=== PATIENT | male | born 1965 | race Caucasian/White ===

== ENCOUNTER 2016-12-14 05:54 | Day surgery (SDC) | payer OTHER ==
[2016-12-13 12:56] VITALS: BMI 27.2
[2016-12-14] VITALS (8 sets, daily range): BP systolic 116–146; BP diastolic 72–89; PULSE 18–100; RESP 13–18; Ht 182.9 cm; Wt 95.6 kg
[~2016-12-14] VITALS: Ht 182.9 cm; Wt 95.6 kg
[~2016-12-14 05:54] MED LIST: FIORICET PO; GLIP5TAB13 PO; METF500T4 PO
[2016-12-14] MEDS ORDERED: SOD CHLORIDE 0.9% 1,000 ML IV SCH (06:00)
[2016-12-14] MEDS ORDERED: CEFAZOLIN 2 GM/50 ML (PMX) 50 ML IVPB ONE (06:00)
[2016-12-14] MEDS ORDERED: BUPIVACAINE 0.25% (MPF) 30 ML INJ ONE (07:16)
[2016-12-14] MEDS ORDERED: GLIP-95 PO (07:17)
[2016-12-14] MEDS ORDERED: ASPI81TA3 PO (07:17)
[2016-12-14] MEDS ORDERED: LIDOCAINE 2% (SDV) 5 ML INJ ONE (07:45)
[2016-12-14] MEDS ORDERED: MIDAZOLAM 1 MG/ML 2 ML INJ ONE (07:46)
[2016-12-14] MEDS ORDERED: PROPOFOL 20 ML ONE (07:46)
[2016-12-14] MEDS ORDERED: FAMOTIDINE 20 MG INJ ONE (08:12)
[2016-12-14] MEDS ORDERED: ONDANSETRON 4 MG INJ ONE (08:12)
[2016-12-14] MEDS ORDERED: KETOROLAC 30 MG INJ ONE (08:29)
--- NOTE | 2016-12-14 08:40 | OPR ---
Date/Time of Note Date/Time of Note DATE: 12/14/16 TIME: 08:35 Operative Report Procedure Date: Dec 14, 2016 Preoperative Diagnosis right shoulder mass Postoperative Diagnosis same Operation Performed 1. excision of right shoulder mass 7 cm mass 10 cm incision 2. localized adjacent tissue transfer with the use of skin flaps of 30 sq cm defect 3. therapeutic injection of subcutaneous marcaine cpt code 20753 Surgeon: Rick CAMPO Anesthesia Type: general Estimated Blood Loss: minimal Specimens right shoulder mass Grafts/Implants: none Complications: no Indications This is a 51-year-old male with a large posterior right shoulder mass. He requires surgical excision. Risks alternatives benefits and percent were discussed the patient. Potential complications include but not limited to bleeding infection pain superficial nerve injury were discussed the patient. Patient expresses understanding and consents to the operation. Procedure Description Patient is taken to the OR and prepped and draped in usual sterile fashion. Surgical timeout was performed. IV antibiotics given. Transverse incision is made with a 15 blade over the right posterior shoulder mass with a 15 blade. Dissection cautery was carried down to the mass and the mass was circumferentially excised part of the mass was also attached to the skin and the skin was thinned out which may have compromised blood supply. Decision was made to also excise some part of the skin that was lax. Due to the large tissue defect localized adjacent tissue transfer with these of skin flaps was performed. Multilayer closure with interrupted 2-0 Vicryl and interrupted 3-0 Vicryl and skin matthew. There is good hemostasis. Dry dressings were applied. Rick CAMPO Dec 14, 2016 08:40
[2016-12-14] MEDS ORDERED: HYDROCODONE/APAP (5/325) TAB PO ONE (09:00)
== END 2016-12-14 09:56 | disposition home or self-care (01) ==
LOC: SDS 05:54
PROVIDERS: ATTEND Surgery
DX: L72.0 Epidermal cyst (principal); E11.9 Type 2 diabetes mellitus without complications
CPT/HCPCS: 14001; 82962; 88307; J2250; J2405; Z7512; Z7610; J1885

== ENCOUNTER 2018-12-23 05:36 | Day surgery (SDC) | payer OTHER ==
[~2018-12-23] VITALS: Ht 182.9 cm; Wt 97.0 kg
[~2018-12-23 05:36] MED LIST changes: +ASPI-903 PO; -FIORICET PO; +GABA400C14 PO; +GLIP10TA14 PO; -GLIP5TAB13 PO; +INSU100I33 SC; +METF-849 PO; -METF500T4 PO; +MTF1000T PO
[2018-12-23 07:10] VITALS: Ht 182.9 cm; Wt 97.0 kg
[2018-12-23 07:37] VITALS: BP 153/93; PULSE 75; RESP 15
[2018-12-23] MEDS ORDERED: PROPOFOL 40 ML ONE (08:31)
== END 2018-12-23 11:10 | disposition home or self-care (01) ==
LOC: GIL 05:36 → SDS 05:36 → GIL 11:10
PROVIDERS: ATTEND Internal Medicine Gastroenterology
DX: Z12.11 Encounter for screening for malignant neoplasm of colon (principal); K64.8 Other hemorrhoids; K64.4 Residual hemorrhoidal skin tags; E11.9 Type 2 diabetes mellitus without complications; Z79.82 Long term (current) use of aspirin; Z79.84 Long term (current) use of oral hypoglycemic drugs
CPT/HCPCS: 45378; 82962; Z7610